=== PATIENT | female | born 1945 | race Caucasian/White ===

== ENCOUNTER 2017-01-16 20:17 | Emergency (ER) | payer MEDICARE ==
[~2017-01-16 20:17] MED LIST: LEVAQUIN750 MG PO; NICOTINE TRANSD21 MG TOP; PREDNISONE10 MG PO; PROAIR HFA8.5 GM IH; SYMBICORT 16010.2 GM IH; TUDORZA PRESS400 MCG IH
== END 2017-01-16 21:59 | disposition home or self-care (01) ==
LOC: ER 20:17
DX: J44.1 Chronic obstructive pulmonary disease with (acute) exacerbation (principal); R19.7 Diarrhea, unspecified; F17.210 Nicotine dependence, cigarettes, uncomplicated; Z79.899 Other long term (current) drug therapy; Z99.81 Dependence on supplemental oxygen
CPT/HCPCS: 36415; 96372